=== PATIENT | male | born 1945 | race Caucasian/White ===

== ENCOUNTER 2020-01-26 10:33 | Inpatient (IN) | payer MEDICARE, BC ==
[~2020-01-26] VITALS: Ht 170.2 cm; Wt 73.5 kg
[2020-01-26] MEDS ORDERED: ROSU20TA2 PO (11:33)
[2020-01-26] MEDS ORDERED: DULO60CA45 PO (11:33)
[2020-01-26] MEDS ORDERED: DOCU-141 PO (11:33)
[2020-01-26] MEDS ORDERED: METO25TA6 PO (11:33)
[2020-01-26] MEDS ORDERED: PREG150C PO (11:33)
[2020-01-26] MEDS ORDERED: DUTA0.5C PO (11:33)
[2020-01-26] MEDS ORDERED: TAMS-12 PO (11:33)
[2020-01-26] MEDS ORDERED: DIAZ5TAB4 PO (11:33)
[2020-01-26] MEDS ORDERED: LORA-259 PO (11:33)
[2020-01-26] MEDS ORDERED: TEMA30CA5 PO (11:33)
[2020-01-26] MEDS ORDERED: FLUO20CA36 PO (11:33)
[2020-01-26] MEDS ORDERED: PRIM50TA27 PO (11:33)
[2020-01-26] MEDS ORDERED: ASPI-1169 PO (11:33)
[2020-01-26] MEDS ORDERED: SACU1TAB PO (11:33)
[2020-01-26] MEDS ORDERED: SULF1TAB48 PO (11:39)
[2020-01-26] MEDS ORDERED: ACETAMINOPHEN 325 MG TABLET PO PRN (12:00)
[2020-01-26] MEDS ORDERED: BLOOD SUGAR DIAGNOSTIC 1 EACH STRIP IN ONE (12:00)
[2020-01-26] MEDS ORDERED: diphenhydrAMINE HCL 25 MG CAPSULE PO PRN (12:00)
[2020-01-26] MEDS ORDERED: hydrOXYzine PAMOATE 25 MG CAPSULE PO PRN (12:00)
[2020-01-26] MEDS ORDERED: MAGNESIUM HYDROXIDE 30 ML UDC PO PRN (12:00)
[2020-01-26] MEDS ORDERED: MAG HYDROX/AL HYDROX/SIMETH 30 ML UDC PO PRN (12:00)
[2020-01-26] MEDS ORDERED: INFLUENZA VACCINE 2020-21 0.5 ML DISP.SYRIN IM ONE (14:00)
[2020-01-26] MEDS ORDERED: PREGABALIN 100 MG CAPSULE PO SCH ×2 (14:30→17:36)
--- NOTE | 2020-01-26 15:52 | NUR ---
GPS/RN-ADMISSION NOTES ADMITTED 74 YEARS OLD MALE PATIENT FROM [facility]. PATIENT WAS ORIGINALLY FROM [facility]. PATIENT WAS ON 5150 FOR DTS TOOK 24 PILLS OF RESTORIL. UPON FACE TO FACE ASSESSMENT, PATIENT WAS CALM,COOPERATIVE WITH DEPRESSED MOOD.PATIENT DENIES SI/HI AT THIS TIME. STATED " I DID A STUPID THINGS THAT IS WHY I ENDED IN THE HOSPITAL".PATIENT IS UNDER THE CARE OF DR. DELVALLE( PSYCHIATRIST) DID SPOKE TO THE PATIENT VIA TELEMEDICINE. PATIENT SIGN ALL ADMISSION PAPERS,CONTRABAND AND FULL BODY ASSESSMENT DONE. MRSA DONE WOUND CONSULT WAS ORDERED. MARCUS CORTEZ MADE AWARE OF THE ADMISSION. PATIENT WAS ORIENTED IN THE UNIT AND UNIT POLICIES. PATIENT'S RIGHT HAND BOOK WAS GIVEN TO THE PATIENT.PATIENT' SISTER RUTH ANN KIDD ([phone]) WAS MADE AWARE OF PATIENT ADMISSION.
[2020-01-26 16:00] VITALS: BP 142/68
[2020-01-26] MEDS: ESCITALOPRAM OXALATE (10 MG) 10 MG TABLET PO SCH (17:06)
[2020-01-26] MEDS: DULOXETINE HCL 30 MG CAPSULE.DR PO SCH (17:06)
[2020-01-26] MEDS ORDERED: PREGABALIN 25 MG CAPSULE PO SCH (17:37)
[2020-01-26] MEDS: PREGABALIN 25 MG CAPSULE PO SCH ×2 (17:56→18:32)
[2020-01-26] MEDS: PREGABALIN 100 MG CAPSULE PO SCH ×2 (17:56→18:32)
--- NOTE | 2020-01-26 18:07 | NUR ---
GPS/RN-NOTES RECEIVED A FAXED FROM [facility] REGARDING BLOOD CULTURE RESULTS. MARCUS CORTEZ MADE AWARE.WITH NNO
--- NOTE | 2020-01-26 18:16 | NUR ---
GPS/RN-NOTES FLU VACCINE WILL BE SCHEDULE TO BE GIVEN ON 01/27/20.
[2020-01-26] MEDS ORDERED: ENTRESTO PO SCH (18:30)
--- NOTE | 2020-01-26 18:33 | NUR ---
GPS/RN-NOTES MARCUS CORTEZ SEEN AND RECONCILED PT. MEDICATIONS.
[2020-01-26 20:14] VITALS: BP 155/86
[2020-01-26] MEDS: TAMSULOSIN 0.4 MG CAP.SR.24H PO SCH (21:16)
[2020-01-26] MEDS: ATORVASTATIN 40 MG TABLET PO SCH (21:16)
[2020-01-26] MEDS: ZOLPIDEM TARTRATE 5 MG TABLET PO PRN (22:07)
[2020-01-27 07:15] LABS: CHOLESTEROL 119 mg/dL (<200); HDL CHOLESTEROL 29 mg/dL (40-60); LDL 67 mg/dL (0-99); TRIGLYCERIDES 159 mg/dL (30-150)
[2020-01-27 07:17] LABS: ALBUMIN 3.5 g/dL (3.4-5.0); BILIRUBIN,TOTAL 0.5 mg/dL (0.2-1.0); CREATININE 1.3 mg/dL (0.6-1.3); POTASSIUM 3.8 mmol/L (3.5-5.1)
[2020-01-27 08:00] VITALS: BP 91/60
[2020-01-27] MEDS: DULOXETINE HCL 30 MG CAPSULE.DR PO SCH (08:11)
[2020-01-27] MEDS: PREGABALIN 25 MG CAPSULE PO SCH (08:11)
[2020-01-27] MEDS: PREGABALIN 100 MG CAPSULE PO SCH (08:11)
[2020-01-27] MEDS: ESCITALOPRAM OXALATE (10 MG) 10 MG TABLET PO SCH (08:12)
[2020-01-27] MEDS: METOPROLOL TARTRATE 25 MG TABLET PO SCH ×2 (08:12→16:22)
[2020-01-27] MEDS: ASPIRIN 81 MG TAB.CHEW PO SCH (08:16)
[2020-01-27] MEDS: SULFAMETH/TRIMETH 800/160 MG 1 UDTAB TABLET PO SCH ×2 (08:16→16:22)
[2020-01-27] MEDS: DUTASTERIDE (0.5 MG) 0.5 MG CAPSULE PO SCH (08:16)
[2020-01-27] MEDS: DOCUSATE SODIUM 100 MG CAPSULE PO SCH ×2 (08:16→16:22)
[2020-01-27] MEDS ORDERED: INFLUENZA VACCINE 2020-21 0.5 ML DISP.SYRIN IM ONE (09:00)
--- NOTE | 2020-01-27 09:00 | NUR ---
RN NOTE- PT ALERT ORIENTED TO PERSON PLACE TIME PURPOSE DENIES SI HI AH VH INTERACTIVE CALM PO INTAKE FAIR MED COMPIANT
[2020-01-27] MEDS: PRIMIDONE 50 MG TABLET PO SCH (09:05)
--- NOTE | 2020-01-27 09:09 | NUR ---
RN NOTE- PT RX- ENTERSTO AT HOME PER PT BUT NOT ABLE TO HAVE IT BROUGHT IN. STATED HE CAN DO WITHOUT IT FOR COUPLE DAYS.
--- NOTE | 2020-01-27 11:45 | NUR ---
Substance Abuse Intervention: RAJ conducted a substance abuse intervention with the pt due to his cannabis use and his current overdose.
--- NOTE | 2020-01-27 12:30 | NUR ---
Family Contact: SW called the pts sister, Sarah Watters ([phone]), and left a voicemail message stating that the SW would like to speak to her regarding pts treatment.
--- NOTE | 2020-01-27 12:48 | NUR ---
Initial Discharge Plan: Pt currently resides in an apartment alone located at [address] [place] [address]; ([phone]). Per pt, he would like to return to his home and he states that he has a caregiver that assists him. SW will work with the pt and the MD regarding appropriate discharge planning. SW will form a safe and proper discharge.
[2020-01-27 12:54] LABS: BASOPHILS % (AUTO) 0.3 % (0.0-2.0); EOSINOPHILS % (AUTO) 0.8 % (0.0-6.0); HEMATOCRIT 47 % (39-51); HEMOGLOBIN 15.8 g/dL (13.5-17.5); LYMPHOCYTES # (AUTO) 2.2 /CMM (0.8-4.8); LYMPHOCYTES % (AUTO) 22.1 % (20.0-44.0); MEAN CORPUSCULAR HGB CONC 34 g/dl (31.0-36.0); MEAN CORPUSCULAR VOLUME 86 fL (80-96); MONOCYTES # (AUTO) 0.7 /CMM (0.1-1.30); MONOCYTES % (AUTO) 6.8 % (2.0-12.0); PLATELET COUNT (AUTO) 189 /CMM (150-450); RED BLOOD CELL COUNT(AUTO) 5.45 MIL/uL (4.5-6.0)
[2020-01-27 13:53] LABS: EOSINOPHILS % (MANUAL) 2 % (0-4); LYMPHOCYTES % (MANUAL) 21 % (16-48); MONOCYTES % (MANUAL) 5 % (0-11.0); NEUTROPHILS % (MANUAL) 72 (42-76)
[2020-01-27 16:00] VITALS: BP 97/64
[2020-01-27 20:18] VITALS: BP 136/85
[2020-01-27] MEDS: MUPIROCIN OINT 2% 22 GM TUBE NS SCH (21:30)
[2020-01-27] MEDS: ATORVASTATIN 40 MG TABLET PO SCH (21:31)
[2020-01-27] MEDS: TAMSULOSIN 0.4 MG CAP.SR.24H PO SCH (21:31)
--- NOTE | 2020-01-27 21:31 | NUR ---
GPS-RN NOTE: INSOMNIA PATIENT C/O INABILITY TO SLEEP. ADMINISTERED AMBIEN 5MG PO ORDERED. WILL CONTINUE TO MONITOR FOR PT'S SAFETY.
[2020-01-27] MEDS: ZOLPIDEM TARTRATE 5 MG TABLET PO PRN ×2 (21:35→22:45)
[2020-01-28 08:00] VITALS: BP 143/78
[2020-01-28] MEDS: PREGABALIN 100 MG CAPSULE PO SCH (08:32)
[2020-01-28] MEDS: DUTASTERIDE (0.5 MG) 0.5 MG CAPSULE PO SCH (08:32)
[2020-01-28] MEDS: METOPROLOL TARTRATE 25 MG TABLET PO SCH ×2 (08:32→16:22)
[2020-01-28] MEDS: ASPIRIN 81 MG TAB.CHEW PO SCH (08:32)
[2020-01-28] MEDS: DULOXETINE HCL 30 MG CAPSULE.DR PO SCH (08:32)
[2020-01-28] MEDS: SULFAMETH/TRIMETH 800/160 MG 1 UDTAB TABLET PO SCH ×2 (08:32→16:21)
[2020-01-28] MEDS: DOCUSATE SODIUM 100 MG CAPSULE PO SCH ×2 (08:32→16:21)
[2020-01-28] MEDS: PREGABALIN 25 MG CAPSULE PO SCH (08:33)
[2020-01-28] MEDS: PRIMIDONE 50 MG TABLET PO SCH (08:40)
[2020-01-28] MEDS: MUPIROCIN OINT 2% 22 GM TUBE NS SCH ×2 (08:49→21:01)
[2020-01-28] MEDS: ESCITALOPRAM OXALATE (10 MG) 10 MG TABLET PO SCH (08:49)
[2020-01-28 14:49] VITALS: BP 117/75
[2020-01-28] MEDS: VALSARTAN 40 MG TABLET PO SCH ×2 (14:52→21:00)
[2020-01-28 16:07] VITALS: BP 117/75
[2020-01-28 20:05] VITALS: BP 128/69
[2020-01-28 21:00] VITALS: BP 125/69
[2020-01-28] MEDS: ATORVASTATIN 40 MG TABLET PO SCH (21:00)
[2020-01-28] MEDS: TAMSULOSIN 0.4 MG CAP.SR.24H PO SCH (21:00)
[2020-01-28] MEDS ORDERED: TRAZODONE 50 MG TABLET ONE (21:53)
[2020-01-28] MEDS: TRAZODONE 50 MG TABLET PO SCH (21:57)
[2020-01-29 08:00] VITALS: BP 91/55
[2020-01-29] MEDS: METOPROLOL TARTRATE 25 MG TABLET PO SCH ×2 (08:14→16:18)
[2020-01-29] MEDS: VALSARTAN 40 MG TABLET PO SCH ×2 (08:14→21:00)
[2020-01-29] MEDS: MUPIROCIN OINT 2% 22 GM TUBE NS SCH ×2 (09:36→21:18)
[2020-01-29] MEDS: PRIMIDONE 50 MG TABLET PO SCH (09:36)
[2020-01-29] MEDS: ASPIRIN 81 MG TAB.CHEW PO SCH (09:39)
[2020-01-29] MEDS: DUTASTERIDE (0.5 MG) 0.5 MG CAPSULE PO SCH (09:40)
[2020-01-29] MEDS: DULOXETINE HCL 30 MG CAPSULE.DR PO SCH (09:40)
[2020-01-29] MEDS: ESCITALOPRAM OXALATE (10 MG) 10 MG TABLET PO SCH (09:40)
[2020-01-29] MEDS: SULFAMETH/TRIMETH 800/160 MG 1 UDTAB TABLET PO SCH ×2 (09:40→16:17)
[2020-01-29] MEDS: DOCUSATE SODIUM 100 MG CAPSULE PO SCH ×2 (09:40→16:17)
[2020-01-29] MEDS: PREGABALIN 100 MG CAPSULE PO SCH (14:17)
[2020-01-29] MEDS: PREGABALIN 25 MG CAPSULE PO SCH (14:18)
[2020-01-29 16:00] VITALS: BP 137/83
[2020-01-29 20:12] VITALS: BP 118/72
[2020-01-29 20:20] VITALS: BP 118/72
[2020-01-29] MEDS: TAMSULOSIN 0.4 MG CAP.SR.24H PO SCH (21:14)
[2020-01-29] MEDS: ATORVASTATIN 40 MG TABLET PO SCH (21:14)
[2020-01-29] MEDS: TRAZODONE 50 MG TABLET PO SCH (21:35)
--- NOTE | 2020-01-29 21:53 | NUR ---
GPS RN NOTE: MEDICINE REFUSAL PATIENT REFUSED TO TAKE DIOVAN SCHEDULED, STATED," MY BP IS ALL OVER THE PLACE & WAS LOW IN THE MORNING." CONTINUED TO REFUSE X 3 DESPITE OF EXPLANATIONS.
[2020-01-30 08:00] VITALS: BP 98/97
[2020-01-30] MEDS: DULOXETINE HCL 30 MG CAPSULE.DR PO SCH (08:50)
[2020-01-30] MEDS: DOCUSATE SODIUM 100 MG CAPSULE PO SCH ×2 (08:51→17:25)
[2020-01-30] MEDS: ASPIRIN 81 MG TAB.CHEW PO SCH (08:51)
[2020-01-30] MEDS: DUTASTERIDE (0.5 MG) 0.5 MG CAPSULE PO SCH (08:52)
[2020-01-30] MEDS: PRIMIDONE 50 MG TABLET PO SCH (08:53)
[2020-01-30] MEDS: ESCITALOPRAM OXALATE (10 MG) 10 MG TABLET PO SCH (08:53)
[2020-01-30] MEDS: MUPIROCIN OINT 2% 22 GM TUBE NS SCH ×2 (08:53→21:35)
[2020-01-30] MEDS: SULFAMETH/TRIMETH 800/160 MG 1 UDTAB TABLET PO SCH ×2 (08:53→17:25)
[2020-01-30] MEDS: PREGABALIN 25 MG CAPSULE PO SCH (09:00)
[2020-01-30] MEDS: PREGABALIN 100 MG CAPSULE PO SCH (09:00)
[2020-01-30] MEDS: METOPROLOL TARTRATE 25 MG TABLET PO SCH ×2 (10:30→17:25)
[2020-01-30] MEDS: VALSARTAN 40 MG TABLET PO SCH ×2 (10:31→21:08)
--- NOTE | 2020-01-30 15:25 | NUR ---
Individual Intervention: SW met with the pt in his room and the pt expressed that he wanted to be discharged from the hospital as soon as possible and return to his home. Pt stated that he has been feeling better and expressed his frustration with the lack of a continuation of care from the psychiatrists. Pt stated that he does not think that he should have been placed on a 5250 hold and SW explained that he will have a chance to express that during his Probable Cause hearing. SW explained the Probable Cause hearing and informed the pt that it is his right to contest his hold if he feels it is not appropriate and also explained that if he is not released from the hearing then he will have to wait for the psychiatrist to release him. Pt stated that he understands.
[2020-01-30 16:00] VITALS: BP 141/70
[2020-01-30 20:25] VITALS: BP 121/64
[2020-01-30] MEDS: TRAZODONE 50 MG TABLET PO SCH (21:08)
[2020-01-30] MEDS: ZOLPIDEM TARTRATE 5 MG TABLET PO PRN (21:08)
[2020-01-30] MEDS: TAMSULOSIN 0.4 MG CAP.SR.24H PO SCH (21:08)
[2020-01-30] MEDS: ATORVASTATIN 40 MG TABLET PO SCH (21:08)
[2020-01-31 08:00] VITALS: BP 113/63
[2020-01-31] MEDS: DULOXETINE HCL 30 MG CAPSULE.DR PO SCH (08:35)
[2020-01-31] MEDS: DUTASTERIDE (0.5 MG) 0.5 MG CAPSULE PO SCH (08:35)
[2020-01-31] MEDS: DOCUSATE SODIUM 100 MG CAPSULE PO SCH ×2 (08:35→17:09)
[2020-01-31] MEDS: ESCITALOPRAM OXALATE (10 MG) 10 MG TABLET PO SCH (08:35)
[2020-01-31] MEDS: SULFAMETH/TRIMETH 800/160 MG 1 UDTAB TABLET PO SCH ×2 (08:35→17:09)
[2020-01-31] MEDS: ASPIRIN 81 MG TAB.CHEW PO SCH (08:35)
[2020-01-31] MEDS: PREGABALIN 100 MG CAPSULE PO SCH (08:35)
[2020-01-31] MEDS: PREGABALIN 25 MG CAPSULE PO SCH (08:36)
[2020-01-31] MEDS: PRIMIDONE 50 MG TABLET PO SCH (08:37)
[2020-01-31] MEDS: VALSARTAN 40 MG TABLET PO SCH ×2 (08:38→21:09)
[2020-01-31] MEDS: MUPIROCIN OINT 2% 22 GM TUBE NS SCH ×2 (08:38→21:09)
[2020-01-31] MEDS: METOPROLOL TARTRATE 25 MG TABLET PO SCH ×2 (08:38→17:00)
--- NOTE | 2020-01-31 09:08 | NUR ---
WOUND CARE CONSULT: PT PRESENTS WITH BILATERAL ELBOW AND KNEE ABRASIONS, PRESENT ON ADMISSION. RECOMMENDATIONS MADE FOR WOUND CARE. DISCUSSED WITH NURSING STAFF. PT IS AMBULATORY AND CONTINENT. Addendum: 01/31/20 at 0911 by JOANA MAHMOOD WNDNU Amended: Links added.
[2020-01-31] MEDS: NEOMY SULF/BACITRAC ZN/POLY 15 GM TUBE TP SCH (10:18)
--- NOTE | 2020-01-31 10:18 | NUR ---
RN NOTE- PT WOUND CARE COMPLETED AT THIS TIME. ABRASIONS TO ELBWS AND KNEES, ERYTHEMATOUS, MINIMAL EXUDATE, NO PURULENCE. WOUNDS W TRIPLE ABX OINTMENT AND TELFA DSG APPLIED. TAPED SECURELY. TOLERATED WELL.
[2020-01-31 16:00] VITALS: BP 97/64
[2020-01-31 20:35] VITALS: BP 125/72
[2020-01-31] MEDS: ATORVASTATIN 40 MG TABLET PO SCH (21:07)
[2020-01-31] MEDS: TAMSULOSIN 0.4 MG CAP.SR.24H PO SCH (21:07)
[2020-01-31] MEDS: TRAZODONE 50 MG TABLET PO SCH (21:08)
[2020-01-31 21:23] VITALS: BP 121/86
[2020-02-01 08:00] VITALS: BP 101/55
[2020-02-01] MEDS: DOCUSATE SODIUM 100 MG CAPSULE PO SCH ×2 (08:02→16:11)
[2020-02-01] MEDS: SULFAMETH/TRIMETH 800/160 MG 1 UDTAB TABLET PO SCH ×2 (08:02→16:11)
[2020-02-01] MEDS: PREGABALIN 100 MG CAPSULE PO SCH (08:02)
[2020-02-01] MEDS: DUTASTERIDE (0.5 MG) 0.5 MG CAPSULE PO SCH (08:02)
[2020-02-01] MEDS: DULOXETINE HCL 30 MG CAPSULE.DR PO SCH (08:02)
[2020-02-01] MEDS: ESCITALOPRAM OXALATE (10 MG) 10 MG TABLET PO SCH (08:02)
[2020-02-01] MEDS: ASPIRIN 81 MG TAB.CHEW PO SCH (08:02)
[2020-02-01] MEDS: PRIMIDONE 50 MG TABLET PO SCH (08:03)
[2020-02-01] MEDS: VALSARTAN 40 MG TABLET PO SCH ×2 (08:03→21:36)
[2020-02-01] MEDS: METOPROLOL TARTRATE 25 MG TABLET PO SCH ×2 (08:04→16:11)
[2020-02-01] MEDS: PREGABALIN 25 MG CAPSULE PO SCH (08:04)
[2020-02-01] MEDS: MUPIROCIN OINT 2% 22 GM TUBE NS SCH ×2 (08:06→21:35)
[2020-02-01] MEDS: NEOMY SULF/BACITRAC ZN/POLY 15 GM TUBE TP SCH (08:06)
--- NOTE | 2020-02-01 13:49 | NUR ---
Family Contact: SW called the pts sister, Sarah ([phone]), and left a voicemail stating that the SW would like to discuss the pts discharge per her request.
--- NOTE | 2020-02-01 13:50 | NUR ---
Caregiver contact: SW contacted the pts caregiver, Ramiro ([phone]), and he stated that he was going to arrive at 12pm to pick the pt up.
[2020-02-01 16:00] VITALS: BP 135/83
[2020-02-01 21:06] VITALS: BP_SYST 106; BP_SYST 115; BP_DIAS 52; BP_DIAS 68
[2020-02-01] MEDS: ATORVASTATIN 40 MG TABLET PO SCH (21:35)
[2020-02-01] MEDS: TRAZODONE 50 MG TABLET PO SCH (21:35)
[2020-02-01] MEDS: TAMSULOSIN 0.4 MG CAP.SR.24H PO SCH (21:35)
[2020-02-02 08:00] VITALS: BP 143/76
[2020-02-02] MEDS: DOCUSATE SODIUM 100 MG CAPSULE PO SCH ×2 (08:03→08:23)
[2020-02-02] MEDS: ASPIRIN 81 MG TAB.CHEW PO SCH (08:03)
[2020-02-02 08:04] VITALS: BP 143/76
[2020-02-02] MEDS: METOPROLOL TARTRATE 25 MG TABLET PO SCH (08:04)
[2020-02-02] MEDS: DULOXETINE HCL 30 MG CAPSULE.DR PO SCH (08:04)
[2020-02-02] MEDS: SULFAMETH/TRIMETH 800/160 MG 1 UDTAB TABLET PO SCH (08:04)
[2020-02-02] MEDS: DUTASTERIDE (0.5 MG) 0.5 MG CAPSULE PO SCH (08:04)
[2020-02-02] MEDS: PREGABALIN 100 MG CAPSULE PO SCH (08:04)
[2020-02-02] MEDS: PRIMIDONE 50 MG TABLET PO SCH (08:04)
[2020-02-02] MEDS: VALSARTAN 40 MG TABLET PO SCH (08:04)
[2020-02-02] MEDS: PREGABALIN 25 MG CAPSULE PO SCH (08:05)
[2020-02-02] MEDS: ESCITALOPRAM OXALATE (10 MG) 10 MG TABLET PO SCH (08:05)
--- NOTE | 2020-02-02 09:14 | NUR ---
Dr. Paul gave an order to D/C hold and D/C home and to follow up with psych and medical doctors. Pt. without distress, denies suicidal and homicidal. Belongings ready and discharge papers ready.
[2020-02-02] MEDS: NEOMY SULF/BACITRAC ZN/POLY 15 GM TUBE TP SCH (09:27)
[2020-02-02] MEDS: MUPIROCIN OINT 2% 22 GM TUBE NS SCH (09:27)
--- NOTE | 2020-02-02 11:52 | NUR ---
Discharge Note: Pt will be discharged back to his home located at [address] [place] [address]; ([phone]). Pt will be picked up by his caregiver, Ramiro ([phone]), at 12PM. Upon discharge, pt appears to be in a euthymic mood and presents with a calm affect. Pt appears to be alert and oriented x4. Pt denies both suicidal and homicidal ideation as well as auditory and visual hallucinations. Pt appears to be ambulatory with an unsteady gait. Pt appears to be well groomed and appropriately dressed. Pt was provided with substance abuse referrals that are listed below. Pt will continue to be under the care of his psychiatrist, Dr. Rajesh Ybarra, located at [address] [facility] [address] [address]; . Pt has an appointment on 02/16/20 at 10:30am. Pt will also be under the care of his air conditioning manager, Dr. Sami Armendariz, located at [address] [address]; . The multidisciplinary exit care form was done, printed, signed, and given to the patient.
--- NOTE | 2020-02-02 12:45 | NUR ---
Pt. left the unit via a wheelchair and wheeled by staff to the lobby with belongings. Pt. was picked by his caregiver Ced [place] ([place]). Pt. instructed on meds to continue at home and verbalizes understanding and instructed to make a follow up with his psych and medical doctors and agreed. Aorn Ruiz made aware of the discharge and reconciled meds to continue at home. Psych meds called in to the pharmacy at [facility] with the tel#[phone] and spoke to the pharmacist Marguerite. Per pt. he doesn't need medical prescriptions and said he still have meds at home. Pictures taken for the skin issues. V/S taken: BP 138/72, PA 73, RR 18, temp. 97.9 and oxygen sat 98%.
== END 2020-02-02 12:45 | disposition home or self-care (01) | DRG 885 ==
LOC: GPS 10:33
PROVIDERS: ADMIT Psychiatry & Neurology Psychiatry; ATTEND Nurse Practitioner Acute Care
DX: F33.2 Major depressive disorder, recurrent severe without psychotic features (principal); N39.0 Urinary tract infection, site not specified; I10 Essential (primary) hypertension; I25.10 Atherosclerotic heart disease of native coronary artery without angina pectoris; E78.5 Hyperlipidemia, unspecified; F41.9 Anxiety disorder, unspecified; G25.0 Essential tremor; N40.0 Benign prostatic hyperplasia without lower urinary tract symptoms; Z95.1 Presence of aortocoronary bypass graft; Z73.6 Limitation of activities due to disability; F29 Unspecified psychosis not due to a substance or known physiological condition; F12.90 Cannabis use, unspecified, uncomplicated; Z91.5 Personal history of self-harm
CPT/HCPCS: 36415; 80053-TC; 80061-TC; 82962-TC; 85025-TC; 87040-TC; 87081-TC; 97116-TC; 97530-TC; Q0163; Q2036